=== PATIENT | female | born 1955 | race Caucasian/White ===

== ENCOUNTER 2022-08-07 08:22 | Day surgery (SDC) | payer MEDICARE, OTHER ==
[~2022-08-07] VITALS: Ht 167.6 cm; Wt 76.5 kg
[2022-08-07] MEDS ORDERED: AMLO5 (08:53)
[2022-08-07] MEDS ORDERED: TRAZ50 (08:53)
[2022-08-07] MEDS ORDERED: THERA-D2000 UNIT (08:54)
[2022-08-07] MEDS ORDERED: MAGNESIUM OXID500 MG (08:54)
== END 2022-08-07 11:01 | disposition home or self-care (01) ==
LOC: ORSCSDS 08:22
PROVIDERS: Internal Medicine Gastroenterology
PROC: 0DBN8ZX Excision of Sigmoid Colon, Via Natural or Artificial Opening Endoscopic, Diagnostic (ICD-10-PCS; principal; 2022-08-07 10:00)
PROC: 0DBL8ZX Excision of Transverse Colon, Via Natural or Artificial Opening Endoscopic, Diagnostic (ICD-10-PCS; principal; 2022-08-07 10:00)
DX: Z12.11 Encounter for screening for malignant neoplasm of colon (principal); D12.5 Benign neoplasm of sigmoid colon; D12.3 Benign neoplasm of transverse colon; K64.8 Other hemorrhoids; I10 Essential (primary) hypertension; Z83.71 Family history of colonic polyps; Z79.899 Other long term (current) drug therapy
CPT/HCPCS: 88305; J2704; J7120